=== PATIENT | male | born 1990 | race Caucasian/White ===

== ENCOUNTER 2016-10-19 22:33 | Emergency (ER) | payer BC, MEDICAID ==
[~2016-10-19] VITALS: Ht 180.3 cm; Wt 64.0 kg
[2016-10-19 23:12] VITALS: Ht 180.3 cm; Wt 64.0 kg
[2016-10-20] MEDS ORDERED: LIDOCAINE 1%/EPI (MDV) 20 ML INJ INJ STA (03:03)
--- NOTE | 2016-10-20 03:18 | ERD ---
ER Documentation Chief Complaint Date/Time DATE: 10/20/16 TIME: 03:13 Chief Complaint Laceration to the left inner thigh HPI 25-year-old male presents to ED with chief complaint of left thigh laceration 5 hours. Patient states that he sustained a laceration while playing ice hockey , another player's skate scratched against his inner left thigh after he fell. He reports mild active bleeding since fall. Denies loss in range of motion, numbness, and tingling. He does not recall his last tetanus vaccine. He currently denies pain. ROS All systems reviewed and are negative except as per history of present illness. Medications Home Meds Active Scripts Ibuprofen* (Motrin*) 600 Mg Tab, 600 MG PO Q6, #30 TAB Prov:Rody Mcdowell PA-C 10/20/16 Allergies Allergies: Coded Allergies: No Known Allergy (Unverified , 10/20/16) PMhx/Soc Medical and Surgical Hx: pt denies Medical Hx, pt denies Surgical Hx History of Surgery: No Anesthesia Reaction: No Hx Neurological Disorder: No Hx Respiratory Disorders: No Hx Cardiac Disorders: No Hx Psychiatric Problems: No Hx Miscellaneous Medical Probl: No Hx Alcohol Use: No Hx Substance Use: No Hx Tobacco Use: No Smoking Status: Never smoker Physical Exam Vitals Vital Signs Date Time Temp Pulse Resp B/P Pulse Ox O2 Delivery O2 Flow Rate FiO2 10/19/16 23:12 98.0 84 18 103/59 100 Physical Exam GENERAL: Non-toxic. No apparent signs of distress. LUNGS: Clear to auscultation. No accessory muscle use. No wheezing, no crackles. No signs or symptoms of respiratory distress. HEART: Regular rate and rhythm. No murmurs, clicks, rubs or gallops. EXTREMITIES: No peripheral cyanosis or edema. Full range of motion in all extremities. Good capillary refill. NEURO: The patient moves all 4 extremities with 5/5 strength. Cranial nerves are grossly intact. Normal mental status for age. Good muscle tone. Sensation intact in bilateral lower extremities. SKIN: There is no apparent rash, petechiae, erythema or swelling. Good skin turgor. 4 cm laceration over medial left thigh with mild active bleeding, no surrounding erythema, edema or ecchymosis. Results 24 hrs Current Medications Medications (Trade) Dose Ordered Sig/Silvia Route PRN Reason Start Time Stop Time Status Last Admin Dose Admin Diphtheria/ Tetanus/Acell Pertussis (Adacel) 0.5 ml ONCE ONCE IM 10/20/16 03:30 10/20/16 03:31 DC 10/20/16 03:16 Lidocaine/ Epinephrine (Xylocaine 1%/ Epi (Mdv) 20 ml) 20 ml ONCE STAT INJ 10/20/16 03:03 10/20/16 03:04 DC Procedures/MDM Patient presented 5 hours post injury. There is mild active bleeding from laceration over the left medial thigh. He does not recall his last tetanus vaccine. I ordered a Tdap to be given in the ER along with lidocaine with epi for laceration repair. Laceration Repair by me: Anesthesia: 1% lidocaine with epi locally Location: Left medial thigh Tendon/Joint/Nerves: No injury Foreign body: None detected after copious irrigation and exploration Technique: Simple Interrupted Sutures, 9 sutures with 5.0 prolene Complexity: No subcutaneous sutures/mucosal repair/ edge excision Post Closure Length: 4 cm Patient's bleeding was easily controlled in the department and there is no indication of anemia. No evidence of compartment syndrome, neurologic injury, vascular injury, open joint, tendon laceration, or foreign body. Patient is appropriate for outpatient follow up. 48 hour wound check. Scar minimization instructions given. Departure Diagnosis: Primary Impression: Laceration Condition: Rody Darden PA-C Oct 20, 2016 03:18
[2016-10-20] MEDS ORDERED: IBUP-1542 PO (03:21)
[2016-10-20] MEDS ORDERED: DIPHTH/TET/ACEL PERTUSS (ADULT) 0.5 ML VIAL IM ONE (03:30)
== END 2016-10-20 04:01 | disposition home or self-care (01) ==
LOC: FTE 22:33
DX: S71.112A Laceration without foreign body, left thigh, initial encounter (principal); W18.09XA Striking against other object with subsequent fall, initial encounter; Y92.9 Unspecified place or not applicable; Z23 Encounter for immunization
CPT/HCPCS: 12002; 90471; 90715; 99283; Z7610